=== PATIENT | male | born 1980 | race Two or more races ===

== ENCOUNTER 2021-08-05 13:42 | Emergency (ER) | payer SELFPAY ==
[~2021-08-05] VITALS: Ht 185.4 cm; Wt 107.0 kg
--- NOTE | 2021-08-05 16:15 | PHYS DOC ---
Past Medical History Past Medical History: Hypertension General Adult EDM: Chief Complaint: SHORTNESS OF BREATH HPI: HPI: Patient is a 40 year old male that tested COVID+ 10 days ago who presents with 2-day history of shortness of breath and cough with new onset of pleuritic chest pain today. Patient reports he and his were tested for COVID-19 10 days ago, and both tested positive. He states he started to feel better about 4 days ago, when he no longer had a fever or felt fatigued. Yesterday his shortness of breath and cough returned. Today he is concerned because he has right-sided chest pain when he breathes deeply or coughs. Patient reports return of fever, chills. He denies chest pressure, palpitations, sputum production. Neither he nor his were vaccinated against COVID-19. Review of Systems: Review of Systems: Constitutional: See HPI Eyes: Denies change in visual acuity or visual field deficits. HENT: Denies nasal congestion or sore throat. Respiratory: See HPI Cardiovascular: See HPI GI: Denies abdominal pain, nausea, vomiting, bloody stools or diarrhea. : Denies dysuria or hematuria. Musculoskeletal: Denies back pain or joint pain. Integument: Denies rash or other skin lesions. Neurologic: Denies headache, focal weakness or sensory changes. Heart Score: C/O Chest Pain: Yes HEART Score for Chest Pain: HEART Score for Chest Pain Response (Comments) Value History Slighlty/Non-Suspicious 0 ECG Normal 0 Age < 45 0 Risk Factors 1 or 2 Risk Factors 1 Troponin < Normal Limit 0 Total 1 Risk Factors: Risk Factors: HTN Risk Scores: Score 0 - 3: 2.5% MACE over next 6 weeks - Discharge Home Score 4 - 6: 20.3% MACE over next 6 weeks - Admit for Clinical Observation Score 7 - 10: 72.7% MACE over next 6 weeks - Early Invasive Strategies Physical Exam: PE: Constitutional: Well developed, well nourished, non-toxic appearance, patient seems anxious. Cardiovascular: Elevated heart rate with regular rhythm, no murmur. Lungs & Thorax: Breath sounds without wheezes, rales or rhonchi, however diminished breath sounds in right lower lung field. Abdomen: Bowel sounds normal, soft, no tenderness, no masses, no pulsatile masses. Skin: Warm, dry, no erythema, no rash. Neurologic: Alert and oriented x4, no focal deficits noted. Current Patient Data: Labs: Laboratory Tests Test 08/05/21 16:43 White Blood Count 14.1 x10^3/uL (4.0-11.0) Red Blood Count 4.78 x10^6/uL (4.30-5.70) Hemoglobin 14.4 g/dL (13.0-17.5) Hematocrit 42.7 % (39.0-53.0) Mean Corpuscular Volume 89 fL (79-100) Mean Corpuscular Hemoglobin 30 pg (25-35) Mean Corpuscular Hemoglobin Concent 34 g/dL (31-37) Red Cell Distribution Width 14.1 % (11.5-14.5) Platelet Count 319 x10^3/uL (140-400) Neutrophils (%) (Auto) 78 % (31-73) Lymphocytes (%) (Auto) 11 % (24-48) Monocytes (%) (Auto) 11 % (0-9) Eosinophils (%) (Auto) 0 % (0-3) Basophils (%) (Auto) 0 % (0-3) Neutrophils # (Auto) 11.0 x10^3/uL (1.8-7.7) Lymphocytes # (Auto) 1.6 x10^3/uL (1.0-4.8) Monocytes # (Auto) 1.5 x10^3/uL (0.0-1.1) Eosinophils # (Auto) 0.0 x10^3/uL (0.0-0.7) Basophils # (Auto) 0.0 x10^3/uL (0.0-0.2) Sodium Level 136 mmol/L (136-145) Potassium Level 4.2 mmol/L (3.5-5.1) Chloride Level 100 mmol/L (98-107) Carbon Dioxide Level 23 mmol/L (21-32) Anion Gap 13 (6-14) Blood Urea Nitrogen 9 mg/dL (8-26) Creatinine 0.8 mg/dL (0.7-1.3) Estimated GFR (Cockcroft-Gault) 107.6 BUN/Creatinine Ratio 11 (6-20) Glucose Level 100 mg/dL (70-99) Calcium Level 8.3 mg/dL (8.5-10.1) Total Bilirubin 0.6 mg/dL (0.2-1.0) Aspartate Amino Transf (AST/SGOT) 24 U/L (15-37) Alanine Aminotransferase (ALT/SGPT) 42 U/L (16-63) Alkaline Phosphatase 74 U/L (46-116) Troponin I High Sensitivity 7 ng/L (4-75) Total Protein 7.4 g/dL (6.4-8.2) Albumin 2.8 g/dL (3.4-5.0) Albumin/Globulin Ratio 0.6 (1.0-1.7) Vital Signs: Vital Signs Date Time Temp Pulse Resp B/P (MAP) Pulse Ox O2 Delivery O2 Flow Rate FiO2 08/05/21 18:07 107 98 Room Air 08/05/21 17:38 116 110/65 (80) 95 Room Air 08/05/21 17:08 124 104/67 (79) 95 Room Air 08/05/21 16:38 101.7 117 16 130/72 (91) 95 Room Air 101.7 EKG: EKG: EKG Interpreted by Dr. Paez at 1357: Sinus tachycardia 132 bpm with no ectopic beats. QT 240 ms/QTc 358 ms. No STEMI. Radiology/Procedures: Radiology/Procedures: PROCEDURE: PORTABLE CHEST 1V INDICATION: Reason: SOB, COVID+ / Spl. Instructions: / History: COMPARISON: None. FINDINGS: Single view of chest obtained. Elevation of the right hemidiaphragm. Cardiac silhouette is unremarkable. Bilateral pulmonic opacities throughout the bilateral lungs. IMPRESSION: * Moderate bilateral pulmonic opacities which could be secondary to bilateral pneumonia. This includes from viral etiology given the patient's history. Electronically signed by: Oskar Jaquez MD (08/05/2021 5:27 PM) DESKTOP- [id number] Course & Med Decision Making: Course & Med Decision Making Pertinent Labs and Imaging studies reviewed. (See chart for details) Patient is an unvaccinated 40-year-old male who tested COVID-19 positive about a week and a half ago. He had remission of symptoms for period of about 2 days, but they have returned. Work-up today will include labs, chest x-ray, EKG. Patient chest x-ray concerning for pneumonia. Patient's oxygen saturation remains in the mid to high 90s. He will be provided with ibuprofen and first dose of azithromycin for a Z-Jose Angel in the department today. Additionally, he should purchase a pulse oximeter for home. He is instructed to return to the emergency department for worsening symptoms or if his oxygen saturation is consistently below 90%. All questions were answered. Patient understands and is agreeable to discharge plan. Dragon Disclaimer: Dragon Disclaimer: This electronic medical record was generated, in whole or in part, using a voice recognition dictation system. Departure Departure Impression: Primary Impression: Pneumonia due to COVID-19 virus Disposition: HOME / SELF CARE / HOMELESS Condition: IMPROVED Patient Instructions: Pneumonia, Adult, [id number] Additional Instructions: You have been diagnosed with COVID-19. It is an infection caused by a new type of coronavirus. COVID-19 will cause cold-like or mild flu symptoms in most. It can cause more severe symptoms like problems breathing in some. There is no treatment for COVID-19. The body will clear the infection over time. Self-care will help to ease discomfort. Rest as needed. Healthy habits may help you feel better. Steps include: - Choose healthy foods including fruits and vegetables. Drink water throughout the day. - Get plenty of sleep each night. - If you smoke, try to quit. It may ease breathing. - Avoid alcohol. - Keep Others Healthy - The virus can spread to others. Droplets are released every time you sneeze or cough. The droplets can get into the mouth, nose, or eyes of people near you and lead to infection. To lower the chances of spreading COVID-19 to others: Stay at home until your doctor has said it is safe to leave. If you tested positive this will mean staying isolated until both of the following are true: - At least 14 days have passed since the start of illness. - You are free of fever for at least 72 hours without the use of medicine. During this time: - Avoid public areas, events, or transportation. Do not return to work or school until your doctor has said it is safe to do so. - Call ahead if you need to go to a medical center. Let them know you may have COVID-19. It will help them guide you where to go. They may also ask you to wear a facemask when you come to the office. - If you call for emergency medical services, let them know you may have COVID- 19. While at home: - Try to avoid close contact with others. Stay about 6 feet away. - If possible, spend most of your time in a separate room from others. - Use a face mask if you will be in close contact with others such as sharing a room or vehicle. - Have someone wipe down common surfaces in the home. Use household candy cutter machine every day on areas like doorknobs, counters, or sinks. - Cough or sneeze into a tissue. Throw the tissue away right after use. If a tissue is not available, cough or sneeze into your elbow. - Wash your hands often. Wash them after sneezing or coughing. Use soap and water and wash for at least 20 seconds. Alcohol based hand venetian blind cleaner can be used if soap and water is not available. - Do not prepare food for others. Avoid sharing personal items like forks, spoons, or toothbrushes. - Avoid close contact with pets while you are sick. There is no evidence of the virus passing to pets. This is a safety step until more is known about this virus. - Isolation can be frustrating. Social interaction can help. Keep in touch with friends and family through phone and tech options. You can still interact with others in your home, just keep a safe distance of about 6 feet. Follow-up: Your doctors office will check in with you to see if there are any changes in your health. You may be asked to keep track of symptoms to share with them. They will also let you know when you are clear to be in public again. Contact your doctor if your recovery is not going as you expect. Get emergency care if you have problems such as: - Trouble breathing - Nonstop chest pain or pressure - Changes in awareness, confusion, or problems waking - Lips or face have bluish color - Worsening of symptoms - Pulse oximeter reads less than 90% O2 consistently If you think you have an emergency, call for emergency medical services right away. As taken from [facility] Azithromycin (AZITHROMYCIN TABLET) 250 Mg Tablet 250 MG PO DAILY for ANTI-BIOTIC for 4 Days, #4 TAB 0 Refills Take 1 tablet by mouth daily for 4 days. Prov: LATOYA CUMMINS 08/05/21 LATOYA CUMMINS Aug 05, 2021 16:15
[2021-08-05 16:52] LABS: BASO % 0 % (0-3); EOS % 0 % (0-3); HEMATOCRIT 42.7 % (39.0-53.0); HEMOGLOBIN 14.4 g/dL (13.0-17.5); LYMPH # 1.6 x10^3/uL (1.0-4.8); LYMPH % 11 % (24-48); MEAN CORPUSCULAR HEMOGLOBIN 30 pg (25-35); MEAN CORPUSCULAR HGB CONC 34 g/dL (31-37); MEAN CORPUSCULAR VOLUME 89 fL (79-100); MONO # 1.5 x10^3/uL (0.0-1.1); MONO % 11 % (0-9); NEUT % 78 % (31-73); PLATELET COUNT 319 x10^3/uL (140-400); RED BLOOD COUNT 4.78 x10^6/uL (4.30-5.70); RED CELL DISTRIBUTION WIDTH 14.1 % (11.5-14.5); WHITE BLOOD COUNT 14.1 x10^3/uL (4.0-11.0)
[2021-08-05 17:05] LABS: CALCIUM 8.3 mg/dL (8.5-10.1); CREATININE 0.8 mg/dL (0.7-1.3); GFR 107.6; POTASSIUM 4.2 mmol/L (3.5-5.1)
[2021-08-05 17:09] LABS: ALBUMIN 2.8 g/dL (3.4-5.0); ALBUMIN/GLOBULIN RATIO 0.6 (1.0-1.7); TOTAL BILIRUBIN 0.6 mg/dL (0.2-1.0); TOTAL PROTEIN 7.4 g/dL (6.4-8.2)
--- NOTE | 2021-08-05 17:29 | RAD ---
INDICATION: Reason: SOB, COVID+ / Spl. Instructions: / History: COMPARISON: None. FINDINGS: Single view of chest obtained. Elevation of the right hemidiaphragm. Cardiac silhouette is unremarkable. Bilateral pulmonic opacities throughout the bilateral lungs. IMPRESSION: * Moderate bilateral pulmonic opacities which could be secondary to bilateral pneumonia. This includ es from viral etiology given the patient's history. Electronically signed by: Oskar Jaquez MD (08/05/2021 5:27 PM) [id number]
[2021-08-05] MEDS ORDERED: AZITHROMYCIN 250 MG TABLET. PO ONE (17:30)
[2021-08-05] MEDS ORDERED: IBUPROFEN 400 MG TABLET. PO ONE ×2 (17:30→18:13)
[2021-08-05 17:38] VITALS: BP 110/65
[2021-08-05] MEDS ORDERED: AZIT250T6 PO (17:39)
[2021-08-05] MEDS ORDERED: AZITHROMYCIN 250 MG TABLET. ONE (18:13)
--- NOTE | 2021-08-05 18:19 | EKG ---
[facility] [address] [place] [address] Test Date: 2021-08-05 Test Time: 13:49:51 Pat Name: AGNIESZKA SCANLON Department: Room: Gender: M Senior Systems Software Engineer: : [id number] Requested By: LATOYA CUMMINS Order Number: [id number] Reading MD: Meño Gordon MD Measurements Intervals [place] Rate: 132 P: -12 MO: 114 QRS: 78 QRSD: 112 T: 16 QT: 240 QTc: 358 Interpretive Statements SINUS TACHYCARDIA INCOMPLETE RIGHT BUNDLE BRANCH BLOCK OTHERWISE NORMAL ECG Electronically Signed On 08-06-2021 9:23:33 COMMUNICATION COORDINATOR by Meño Gordon MD
== END 2021-08-05 18:22 | disposition home or self-care (01) ==
LOC: ER 13:42
DX: U07.1 COVID-19 (principal); J12.82 Pneumonia due to coronavirus disease 2019; I10 Essential (primary) hypertension
CPT/HCPCS: 36415; 71045; 80053; 84484; 85025; 93005; 99285-25